=== PATIENT | male | born 1955 | race African-American/Black ===

== ENCOUNTER 2018-01-26 17:58 | Inpatient (IN) | payer MEDICAID ==
[~2018-01-26] VITALS: Ht 172.7 cm; Wt 70.8 kg
[~2018-01-26 17:58] MED LIST: DIGO0.25 PO; METO-539 PO; OMEP20CA4 PO; TRAM50TA PO; VIC PO; WARF6TAB22 PO
[2018-01-26 18:54] LABS: BASOPHILS % 0.4 % (0.0-2.0); EOSINOPHILS % 0.6 % (0.0-5.0); HEMATOCRIT. 37.4 % (42.0-52.0); HEMOGLOBIN. 12.6 g/dL (14.0-18.0); LYMPHOCYTES % 10.9 % (20.0-50.0); MEAN CORPUSCULAR HEMOGLOBIN 29.2 pg (28.0-32.0); MEAN CORPUSCULAR VOLUME 86.9 fL (80.0-94.0); MONOCYTES % 6.7 % (2.0-8.0); NEUTROPHILS % 81.4 % (40.0-76.0); RED BLOOD CELL COUNT 4.31 mill/uL (4.7-6.1); RED CELL DISTRIBUTION WIDTH 16.1 % (11.6-14.6)
[2018-01-26 19:01] LABS: CHLORIDE 108 mEq/L (98-107)
[2018-01-26 19:03] LABS: INR 1.2; PARTIAL THROMBOPLASTIN TIME 28.4 sec (23.4-31.0); PROTHROMBIN TIME 12.9 sec (9.4-11.6)
[2018-01-26 19:13] LABS: MEAN PLATELET VOLUME 10.1 fl (7.4-10.4); PLATELET 83 x1000/uL (130-400)
[2018-01-26 19:14] LABS: PLATELET ESTIMATE DECREASED
[2018-01-26] MEDS ORDERED: ASPIRIN 81MG TABLET PO NR (22:00)
[2018-01-26] MEDS ORDERED: FUROSEMIDE 20MG/2ML VIAL IVP NR (22:00)
[2018-01-26] MEDS ORDERED: IPRATROPIUM/ALBUTEROL 0.5-3(2.5)MG/3ML NEB INH PRN (22:15)
[2018-01-26] MEDS ORDERED: HYDROCODONE/ACETAMINOPHEN 5/325MG TABLET PO PRN (22:15)
[2018-01-26] MEDS ORDERED: ACETAMINOPHEN 325MG TABLET PO PRN (22:15)
[2018-01-26] MEDS ORDERED: ONDANSETRON HCL 4MG/2ML VIAL IV PRN (22:15)
[2018-01-26] MEDS ORDERED: CLONIDINE 0.1MG TABLET PO PRN (22:15)
[2018-01-26] MEDS ORDERED: MAGNESIUM/ALUMINUM HYDROXIDE/SIMETHICONE 30ML UDC PO PRN (22:15)
[2018-01-27] VITALS (7 sets, daily range): BP systolic 105–132; BP diastolic 56–75
[2018-01-27 00:18] LABS: CHLORIDE 108 mEq/L (98-107)
[2018-01-27] MEDS ORDERED: DEXTROSE 50% WATER 50ML SYRINGE IV PRN (00:45)
[2018-01-27 07:28] LABS: BASOPHILS % 0.6 % (0.0-2.0); EOSINOPHILS % 4.5 % (0.0-5.0); HEMATOCRIT. 38.2 % (42.0-52.0); HEMOGLOBIN. 12.7 g/dL (14.0-18.0); MEAN CORPUSCULAR VOLUME 87.4 fL (80.0-94.0); MONOCYTES % 10.3 % (2.0-8.0); NEUTROPHILS % 66.6 % (40.0-76.0); RED BLOOD CELL COUNT 4.38 mill/uL (4.7-6.1); RED CELL DISTRIBUTION WIDTH 16.2 % (11.6-14.6)
[2018-01-27 08:10] LABS: CREATINE KINASE 92 IU/L (39-308); HDL CHOLESTEROL 43 mg/dL (40-59); LDL CHOLESTEROL 103 mg/dL (5-100)
[2018-01-27] MEDS: INSULIN LISPRO 100 UNITS/ML SUBCUT SCH ×4 (08:10→20:41)
[2018-01-27] MEDS: BLOOD SUGAR DIAGNOSTIC STRIP TEST SCH ×4 (08:10→20:40)
[2018-01-27 08:15] LABS: CREATINE KINASE MB FRACTION < 0.5 ng/mL (0.5-3.6)
[2018-01-27 10:16] LABS: CLARITY URINE CLEAR (CLEAR); COLOR URINE YELLOW (YELLOW); KETONES URINE NEGATIVE (NEGATIVE); LEUKOCYTE ESTERASE URINE NEGATIVE (NEGATIVE); NITRITE URINE NEGATIVE (NEGATIVE); OCCULT BLOOD URINE NEGATIVE (NEGATIVE); PH URINE 5.5 (4.5-8.0); PROTEIN URINE NEGATIVE (NEGATIVE); SPECIFIC GRAVITY URINE 1.007 (1.005-1.030)
[2018-01-27 10:32] LABS: *AMPHETAMINES SCREEN URINE NEGATIVE (NEGATIVE); *BARBITURATES SCREEN URINE NEGATIVE (NEGATIVE); *BENZODIAZEPINES SCREEN URINE NEGATIVE (NEGATIVE); *COCAINE SCREEN URINE NEGATIVE (NEGATIVE); CANNABINOID URINE SCREEN NEGATIVE (NEGATIVE); METHADONE URINE SCREEN NEGATIVE (NEGATIVE); OPIATES URINE SCREEN NEGATIVE (NEGATIVE); PHENCYCLIDINE URINE SCREEN NEGATIVE (NEGATIVE)
[2018-01-27 11:15] LABS: PLATELET 79 x1000/uL (130-400)
[2018-01-27] MEDS ORDERED: REGADENOSON 0.4 MG/5 ML IV SCH (14:15)
[2018-01-27] MEDS: POTASSIUM CHLORIDE 20MEQ TABLET SR PO SCH ×2 (14:51→17:42)
[2018-01-27] MEDS: FUROSEMIDE 40MG/4ML VIAL IVP SCH (16:41)
[2018-01-27 16:43] LABS: CREATINE KINASE 89 IU/L (39-308)
[2018-01-27 16:45] LABS: CREATINE KINASE MB FRACTION < 0.5 ng/mL (0.5-3.6)
[2018-01-27] MEDS: LOSARTAN POTASSIUM 25 MG TABLET PO SCH (17:42)
[2018-01-27] MEDS ORDERED: WARFARIN SODIUM 7.5MG TABLET PO SCH (18:00)
[2018-01-27] MEDS: ENOXAPARIN 80MG/0.8ML SYR SUBCUT SCH (18:16)
[2018-01-27] MEDS: METHYLPREDNISOLONE SOD SUCC 1,000 MG in DEXT 5% WATER 100 ML IV SCH (20:27)
[2018-01-27] MEDS: GUAIFENESIN-DM 200MG-20MG/10ML UDC PO PRN (20:30)
[2018-01-27] MEDS: ATORVASTATIN CALCIUM 40MG TABLET PO SCH (20:40)
[2018-01-28 00:19] VITALS: BP 112/71
[2018-01-28 04:00] VITALS: BP 90/56
[2018-01-28 05:55] LABS: CHLORIDE 105 mEq/L (98-107)
[2018-01-28] MEDS: BLOOD SUGAR DIAGNOSTIC STRIP TEST SCH ×4 (06:06→21:00)
[2018-01-28] MEDS: ENOXAPARIN 80MG/0.8ML SYR SUBCUT SCH ×2 (06:06→19:05)
[2018-01-28 06:07] LABS: CREATINE KINASE 97 IU/L (39-308); LDL CHOLESTEROL 123 mg/dL (5-100)
[2018-01-28 06:08] LABS: HDL CHOLESTEROL 47 mg/dL (40-59)
[2018-01-28 06:10] LABS: D-DIMER 0.3 mg/L FEU (<0.50); INR 1.2
[2018-01-28 06:14] LABS: CREATINE KINASE MB FRACTION < 0.5 ng/mL (0.5-3.6)
[2018-01-28 06:18] LABS: HEMATOCRIT. 40.7 % (42.0-52.0); HEMOGLOBIN. 13.5 g/dL (14.0-18.0); MEAN CORPUSCULAR HEMOGLOBIN 29.3 pg (28.0-32.0); MEAN CORPUSCULAR VOLUME 88.2 fL (80.0-94.0); RED BLOOD CELL COUNT 4.62 mill/uL (4.7-6.1); RED CELL DISTRIBUTION WIDTH 15.6 % (11.6-14.6)
[2018-01-28] MEDS: INSULIN LISPRO 100 UNITS/ML SUBCUT SCH ×4 (07:46→21:00)
[2018-01-28 08:28] VITALS: BP 109/80
[2018-01-28] MEDS: LOSARTAN POTASSIUM 25 MG TABLET PO SCH ×2 (09:00→17:00)
[2018-01-28 09:36] LABS: PLATELET ESTIMATE DECREASED
[2018-01-28 09:37] LABS: MEAN PLATELET VOLUME 11.2 fl (7.4-10.4); PLATELET 112 x1000/uL (130-400)
[2018-01-28] MEDS: FUROSEMIDE 40MG/4ML VIAL IVP SCH ×2 (09:40→19:05)
[2018-01-28] MEDS: POTASSIUM CHLORIDE 20MEQ TABLET SR PO SCH ×2 (09:40→19:05)
[2018-01-28] MEDS ORDERED: REGADENOSON 0.4 MG/5 ML IV ONE (12:31)
[2018-01-28 13:14] VITALS: BP 119/78
[2018-01-28] MEDS: DILTIAZEM HCL 60MG TABLET PO SCH ×3 (13:37→23:42)
[2018-01-28] MEDS ORDERED: WARFARIN SODIUM 7.5MG TABLET PO NR (18:00)
[2018-01-28 20:00] VITALS: BP 112/68
[2018-01-28] MEDS: ATORVASTATIN CALCIUM 40MG TABLET PO SCH (22:03)
[2018-01-28] MEDS: METHYLPREDNISOLONE SOD SUCC 1,000 MG in DEXT 5% WATER 100 ML IV SCH (22:04)
[2018-01-28] MEDS: GUAIFENESIN-DM 200MG-20MG/10ML UDC PO PRN (23:37)
[2018-01-29] VITALS: BP 100/59
[2018-01-29 04:00] VITALS: BP 98/65
[2018-01-29] MEDS: DILTIAZEM HCL 60MG TABLET PO SCH ×3 (05:26→18:00)
[2018-01-29] MEDS: ENOXAPARIN 80MG/0.8ML SYR SUBCUT SCH ×2 (05:33→21:44)
[2018-01-29] MEDS: BLOOD SUGAR DIAGNOSTIC STRIP TEST SCH ×4 (05:53→21:44)
[2018-01-29 07:35] LABS: INR 1.5; PROTHROMBIN TIME 15.2 sec (9.4-11.6)
[2018-01-29 07:46] LABS: HEMATOCRIT. 39.5 % (42.0-52.0); MEAN CORPUSCULAR HEMOGLOBIN 29.4 pg (28.0-32.0); MEAN CORPUSCULAR VOLUME 88.9 fL (80.0-94.0); MEAN PLATELET VOLUME 11.4 fl (7.4-10.4); PLATELET 131 x1000/uL (130-400); RED BLOOD CELL COUNT 4.44 mill/uL (4.7-6.1); RED CELL DISTRIBUTION WIDTH 15.9 % (11.6-14.6)
[2018-01-29] MEDS: INSULIN LISPRO 100 UNITS/ML SUBCUT SCH ×3 (07:54→21:00)
[2018-01-29 08:00] VITALS: BP 110/73
[2018-01-29] MEDS: LOSARTAN POTASSIUM 25 MG TABLET PO SCH ×2 (09:00→17:00)
[2018-01-29] MEDS: FUROSEMIDE 40MG/4ML VIAL IVP SCH ×2 (09:10→21:48)
[2018-01-29] MEDS: POTASSIUM CHLORIDE 20MEQ TABLET SR PO SCH ×2 (09:11→21:48)
[2018-01-29 12:00] VITALS: BP 109/66
[2018-01-29 14:08] LABS: PLATELET ESTIMATE NORMAL
[2018-01-29] MEDS ORDERED: WARFARIN SODIUM 3MG TABLET PO SCH (18:00)
[2018-01-29 20:00] VITALS: BP 106/74
[2018-01-29] MEDS: ATORVASTATIN CALCIUM 40MG TABLET PO SCH (21:33)
[2018-01-29] MEDS: METHYLPREDNISOLONE SOD SUCC 1,000 MG in DEXT 5% WATER 100 ML IV SCH (21:34)
[2018-01-30] VITALS: BP 116/76
[2018-01-30] MEDS: DILTIAZEM HCL 60MG TABLET PO SCH ×4 (01:08→17:27)
[2018-01-30 04:00] VITALS: BP 102/63
[2018-01-30] MEDS: GUAIFENESIN-DM 200MG-20MG/10ML UDC PO PRN ×3 (05:48→13:30)
[2018-01-30] MEDS: ENOXAPARIN 80MG/0.8ML SYR SUBCUT SCH ×2 (05:49→17:36)
[2018-01-30] MEDS: BLOOD SUGAR DIAGNOSTIC STRIP TEST SCH ×3 (05:49→17:36)
[2018-01-30 07:44] LABS: PROTHROMBIN TIME 21.1 sec (9.4-11.6)
[2018-01-30 07:50] LABS: MEAN CORPUSCULAR VOLUME 87.3 fL (80.0-94.0); MEAN PLATELET VOLUME 10.9 fl (7.4-10.4); PLATELET 137 x1000/uL (130-400); RED BLOOD CELL COUNT 4.81 mill/uL (4.7-6.1); RED CELL DISTRIBUTION WIDTH 16.2 % (11.6-14.6)
[2018-01-30 08:00] VITALS: BP 121/77
[2018-01-30 08:09] LABS: CHLORIDE 104 mEq/L (98-107)
[2018-01-30] MEDS: INSULIN LISPRO 100 UNITS/ML SUBCUT SCH ×3 (08:10→17:36)
[2018-01-30] MEDS: FUROSEMIDE 40MG/4ML VIAL IVP SCH (09:20)
[2018-01-30] MEDS: POTASSIUM CHLORIDE 20MEQ TABLET SR PO SCH (09:20)
[2018-01-30] MEDS: LOSARTAN POTASSIUM 25 MG TABLET PO SCH ×2 (09:22→16:24)
[2018-01-30 12:00] VITALS: BP 114/78
[2018-01-30 13:30] LABS: PLATELET ESTIMATE NORMAL
[2018-01-30 16:13] VITALS: BP 97/45
[2018-01-30] MEDS ORDERED: WARF3TAB28 PO (17:07)
[2018-01-30] MEDS ORDERED: LOSA25TA3 PO (17:07)
[2018-01-30] MEDS ORDERED: DILT60TA35 PO (17:07)
[2018-01-30] MEDS ORDERED: LIP40 PO (17:07)
[2018-01-30 17:13] VITALS: BP 96/54
[2018-01-30] MEDS ORDERED: PREDNISONE 20MG TABLET PO SCH (17:45)
[2018-01-30] MEDS ORDERED: WARFARIN SODIUM 3MG TABLET PO SCH (18:00)
== END 2018-01-30 18:49 | disposition home or self-care (01) | DRG 194 ==
LOC: ER 18:02 → 7WST 21:54 → ENRESERV 01-27 00:01
PROVIDERS: ADMIT Internal Medicine; ATTEND Internal Medicine
DX: I13.0 Hypertensive heart and chronic kidney disease with heart failure and stage 1 through stage 4 chronic kidney disease, or unspecified chronic kidney disease (principal); N17.9 Acute kidney failure, unspecified; D69.6 Thrombocytopenia, unspecified; I48.92 Unspecified atrial flutter; Z95.3 Presence of xenogenic heart valve; I48.2 Chronic atrial fibrillation; I50.33 Acute on chronic diastolic (congestive) heart failure; D63.8 Anemia in other chronic diseases classified elsewhere; E78.5 Hyperlipidemia, unspecified; I08.0 Rheumatic disorders of both mitral and aortic valves; N18.9 Chronic kidney disease, unspecified
CPT/HCPCS: 36415; 71045; 78452; 80048; 80053; 80061; 80305; 81003; 82550; 82553; 82962; 83690; 83735; 83880; 84443; 84484; 85025; 85379; 85610; 85730; 93005; 93017; 93306; 93970; A9500; J1650; J1815; J1940; J2785; J2930; J7030; J7050; J7060

== ENCOUNTER 2018-08-02 21:47 | Inpatient (IN) | payer MEDICAID ==
[~2018-08-02] VITALS: Ht 172.7 cm; Wt 67.6 kg
[~2018-08-02 21:47] MED LIST changes: -DIGO0.25 PO; +DILT60TA35 PO; +LIP40 PO; +LOSA25TA3 PO; -METO-539 PO; -OMEP20CA4 PO; -TRAM50TA PO; -VIC PO; +WARF3TAB28 PO
[2018-08-02] MEDS ORDERED: FUROSEMIDE 20MG/2ML VIAL IVP ONE (23:45)
[2018-08-02 23:54] LABS: BASOPHILS % 1.3 % (0.0-2.0); EOSINOPHILS % 4.9 % (0.0-5.0); HEMATOCRIT. 30.7 % (42.0-52.0); HEMOGLOBIN. 9.2 g/dL (14.0-18.0); LYMPHOCYTES % 24.9 % (20.0-50.0); MEAN PLATELET VOLUME 9.3 fl (7.4-10.4); MONOCYTES % 11.2 % (2.0-8.0); NEUTROPHILS % 57.7 % (40.0-76.0); PLATELET 135 x1000/uL (130-400); RED BLOOD CELL COUNT 4.39 mill/uL (4.7-6.1); RED CELL DISTRIBUTION WIDTH 21.4 % (11.6-14.6)
[2018-08-03 00:02] LABS: CHLORIDE 112 mEq/L (98-107)
[2018-08-03 00:04] LABS: INR 2.1; PROTHROMBIN TIME 21.2 sec (9.1-11.1)
[2018-08-03 00:10] LABS: PLATELET ESTIMATE NORMAL
[2018-08-03 04:00] VITALS: BP 119/72
[2018-08-03] MEDS ORDERED: AM500 PO (04:14)
[2018-08-03] MEDS ORDERED: DICY20TA11 MT (04:15)
[2018-08-03 04:25] VITALS: BP 119/72
[2018-08-03 07:16] LABS: *BARBITURATES SCREEN URINE NEGATIVE (NEGATIVE); *BENZODIAZEPINES SCREEN URINE NEGATIVE (NEGATIVE); METHADONE URINE SCREEN NEGATIVE (NEGATIVE); OPIATES URINE SCREEN NEGATIVE (NEGATIVE)
[2018-08-03 07:17] LABS: *AMPHETAMINES SCREEN URINE NEGATIVE (NEGATIVE); *COCAINE SCREEN URINE NEGATIVE (NEGATIVE); CANNABINOID URINE SCREEN NEGATIVE (NEGATIVE); PHENCYCLIDINE URINE SCREEN NEGATIVE (NEGATIVE)
[2018-08-03 08:00] VITALS: BP 114/71
[2018-08-03 08:41] LABS: BASOPHILS % 1.7 % (0.0-2.0); EOSINOPHILS % 3.7 % (0.0-5.0); HEMOGLOBIN. 9.5 g/dL (14.0-18.0); LYMPHOCYTES % 24.8 % (20.0-50.0); MEAN CORPUSCULAR HEMOGLOBIN 21.4 pg (28.0-32.0); MEAN CORPUSCULAR VOLUME 70.1 fL (80.0-94.0); MONOCYTES % 12.5 % (2.0-8.0); NEUTROPHILS % 57.3 % (40.0-76.0); RED BLOOD CELL COUNT 4.42 mill/uL (4.7-6.1); RED CELL DISTRIBUTION WIDTH 21.6 % (11.6-14.6)
[2018-08-03 08:47] LABS: CHLORIDE 111 mEq/L (98-107)
[2018-08-03 08:55] LABS: CREATINE KINASE 95 IU/L (39-308)
[2018-08-03 08:57] LABS: CREATINE KINASE MB FRACTION < 1.0 ng/mL (0.5-3.6)
[2018-08-03 09:14] LABS: MEAN PLATELET VOLUME 9.7 fl (7.4-10.4); PLATELET 117 x1000/uL (130-400)
[2018-08-03 12:00] VITALS: BP 114/68
[2018-08-03] MEDS: DICYCLOMINE HCL 20MG TABLET PO SCH ×2 (14:12→18:19)
[2018-08-03 16:00] VITALS: BP 105/71
[2018-08-03 17:18] LABS: TOTAL IRON BINDING CAPACITY 361 ug/dL (250-450)
[2018-08-03 17:19] LABS: HAPTOGLOBIN <31.0 mg/dL (30-200)
[2018-08-03 17:21] LABS: CREATINE KINASE 81 IU/L (39-308)
[2018-08-03 17:22] LABS: CREATINE KINASE MB FRACTION < 1.0 ng/mL (0.5-3.6)
[2018-08-03 17:33] LABS: FOLIC ACID (FOLATE) SERUM 12.3 ng/mL (>5.38)
[2018-08-03] MEDS ORDERED: WARFARIN SODIUM 3MG TABLET PO SCH (18:00)
[2018-08-03] MEDS ORDERED: WARFARIN SODIUM 7.5MG TABLET PO SCH (18:00)
[2018-08-03 20:00] VITALS: BP 99/60
[2018-08-04] VITALS: BP 110/77
[2018-08-04 03:49] LABS: CLARITY URINE CLEAR (CLEAR); COLOR URINE YELLOW (YELLOW); KETONES URINE NEGATIVE (NEGATIVE); LEUKOCYTE ESTERASE URINE NEGATIVE (NEGATIVE); NITRITE URINE NEGATIVE (NEGATIVE); OCCULT BLOOD URINE NEGATIVE (NEGATIVE); PH URINE 5.5 (4.5-8.0); PROTEIN URINE NEGATIVE (NEGATIVE); UROBILINOGEN URINE 0.2 E.U./dL (0.2-1.0)
[2018-08-04 04:00] VITALS: BP 97/68
[2018-08-04 06:34] LABS: BASOPHILS % 1.2 % (0.0-2.0); EOSINOPHILS % 7.1 % (0.0-5.0); HEMATOCRIT. 30.7 % (42.0-52.0); HEMOGLOBIN. 9.4 g/dL (14.0-18.0); LYMPHOCYTES % 28.3 % (20.0-50.0); MEAN CORPUSCULAR HEMOGLOBIN 21.3 pg (28.0-32.0); MEAN CORPUSCULAR VOLUME 69.3 fL (80.0-94.0); MEAN PLATELET VOLUME 9.9 fl (7.4-10.4); MONOCYTES % 13.6 % (2.0-8.0); NEUTROPHILS % 49.8 % (40.0-76.0); PLATELET 139 x1000/uL (130-400); RED BLOOD CELL COUNT 4.44 mill/uL (4.7-6.1); RED CELL DISTRIBUTION WIDTH 20.8 % (11.6-14.6)
[2018-08-04 06:38] LABS: PROTHROMBIN TIME 19.4 sec (9.1-11.1)
[2018-08-04 07:31] LABS: CHLORIDE 110 mEq/L (98-107)
[2018-08-04 08:00] VITALS: BP 96/64
[2018-08-04] MEDS: DICYCLOMINE HCL 20MG TABLET PO SCH ×3 (08:26→17:12)
[2018-08-04] MEDS ORDERED: ONDANSETRON HCL 4MG/2ML INJ IV PRN (08:30)
[2018-08-04] MEDS ORDERED: ACETAMINOPHEN 325MG TABLET PO PRN (08:30)
[2018-08-04] MEDS: FUROSEMIDE 40MG/4ML VIAL IVP SCH ×2 (08:49→17:11)
[2018-08-04] MEDS: DOCUSATE SODIUM 100MG CAPSULE PO SCH ×2 (08:49→17:11)
[2018-08-04 10:42] LABS: PLATELET ESTIMATE NORMAL
[2018-08-04] MEDS ORDERED: POTASSIUM CHLORIDE 20MEQ TABLET SR PO SCH (11:45)
[2018-08-04] MEDS: FERROUS SULFATE 325MG TABLET PO SCH ×2 (11:53→17:11)
[2018-08-04 12:04] VITALS: BP 99/75
[2018-08-04 16:00] VITALS: BP 100/75
[2018-08-04 16:51] VITALS: BP 100/75
[2018-08-04] MEDS ORDERED: WARFARIN SODIUM 10MG TABLET PO SCH (18:00)
[2018-08-04] MEDS ORDERED: DIGOXIN 250MCG TABLET PO SCH (18:00)
== END 2018-08-04 17:32 | disposition home or self-care (01) | DRG 194 ==
LOC: ER 21:47 → 5WST 08-03 01:50 → ENRESERV 08-03 02:56
PROVIDERS: ADMIT Internal Medicine; ATTEND Internal Medicine
DX: I13.0 Hypertensive heart and chronic kidney disease with heart failure and stage 1 through stage 4 chronic kidney disease, or unspecified chronic kidney disease (principal); D69.6 Thrombocytopenia, unspecified; I42.9 Cardiomyopathy, unspecified; I50.23 Acute on chronic systolic (congestive) heart failure; D50.9 Iron deficiency anemia, unspecified; E78.5 Hyperlipidemia, unspecified; I09.9 Rheumatic heart disease, unspecified; I48.2 Chronic atrial fibrillation; K58.9 Irritable bowel syndrome, unspecified; N18.9 Chronic kidney disease, unspecified; Z79.01 Long term (current) use of anticoagulants; Z95.2 Presence of prosthetic heart valve; Z79.899 Other long term (current) drug therapy
CPT/HCPCS: 36415; 71045; 80048; 80305; 82270; 82550; 82553; 82607; 82728; 82746; 83010; 83540; 83550; 83615; 83880; 84484; 85044; 93005; 93306; 96374; 99285; J1940

== ENCOUNTER 2018-09-08 03:18 | Inpatient (IN) | payer MEDICAID ==
[~2018-09-08] VITALS: Ht 172.7 cm; Wt 68.0 kg
[~2018-09-08 03:18] MED LIST changes: +DICY20TA11 MT; -DILT60TA35 PO; -LIP40 PO; -LOSA25TA3 PO; -WARF3TAB28 PO
[2018-09-08] MEDS ORDERED: SODIUM CHLORIDE 0.9% 500 ML IV ONE (03:30)
[2018-09-08 04:09] LABS: BASOPHILS % 1.4 % (0.0-2.0); HEMATOCRIT. 34.4 % (42.0-52.0); HEMOGLOBIN. 10.5 g/dL (14.0-18.0); LYMPHOCYTES % 24.2 % (20.0-50.0); MEAN CORPUSCULAR HEMOGLOBIN 23.4 pg (28.0-32.0); MEAN CORPUSCULAR VOLUME 76.6 fL (80.0-94.0); MONOCYTES % 8.9 % (2.0-8.0); NEUTROPHILS % 62.5 % (40.0-76.0); RED BLOOD CELL COUNT 4.49 mill/uL (4.7-6.1)
[2018-09-08 04:20] LABS: CHLORIDE 112 mEq/L (98-107)
[2018-09-08 04:28] LABS: LDL CHOLESTEROL 85 mg/dL (5-100)
[2018-09-08 04:29] LABS: CREATINE KINASE 100 IU/L (39-308); CREATINE KINASE MB FRACTION 1.1 ng/mL (0.5-3.6); HDL CHOLESTEROL 40 mg/dL (40-59)
[2018-09-08 05:18] LABS: MEAN PLATELET VOLUME 9.9 fl (7.4-10.4); PLATELET 112 x1000/uL (130-400)
[2018-09-08] MEDS ORDERED: FUROSEMIDE 40MG/4ML VIAL IVP ONE (05:45)
[2018-09-08] MEDS ORDERED: IOHEXOL-350 100 ML BOTTLE ONE (05:51)
[2018-09-08 16:49] LABS: INR 2.4; PROTHROMBIN TIME 23.3 sec (9.1-11.1)
[2018-09-08] MEDS ORDERED: DILTIAZEM HCL 30MG TABLET PO SCH (18:00)
[2018-09-08 21:50] VITALS: BP 118/68
[2018-09-08] MEDS ORDERED: WARFARIN SODIUM 3MG TABLET PO NR (22:45)
[2018-09-08] MEDS: DILTIAZEM HCL 30MG TABLET PO SCH (23:14)
[2018-09-08 23:17] VITALS: BP 118/68
[2018-09-09 00:08] VITALS: BP 101/75
[2018-09-09 04:00] VITALS: BP 95/50
[2018-09-09] MEDS: DILTIAZEM HCL 30MG TABLET PO SCH ×4 (04:00→21:16)
[2018-09-09 06:25] LABS: D-DIMER 0.34 mg/L FEU (<0.50); INR 2.9; PROTHROMBIN TIME 28.8 sec (9.1-11.1)
[2018-09-09 06:26] LABS: BASOPHILS % 1.1 % (0.0-2.0); EOSINOPHILS % 4.3 % (0.0-5.0); HEMATOCRIT. 33.2 % (42.0-52.0); HEMOGLOBIN. 10.4 g/dL (14.0-18.0); LYMPHOCYTES % 20.4 % (20.0-50.0); MEAN CORPUSCULAR HEMOGLOBIN 23.6 pg (28.0-32.0); MEAN CORPUSCULAR VOLUME 75.7 fL (80.0-94.0); MEAN PLATELET VOLUME 10.3 fl (7.4-10.4); MONOCYTES % 11.8 % (2.0-8.0); NEUTROPHILS % 62.4 % (40.0-76.0); PLATELET 110 x1000/uL (130-400); RED BLOOD CELL COUNT 4.39 mill/uL (4.7-6.1); RED CELL DISTRIBUTION WIDTH 24.6 % (11.6-14.6)
[2018-09-09 06:30] LABS: CHLORIDE 107 mEq/L (98-107)
[2018-09-09 06:41] LABS: CREATINE KINASE 76 IU/L (39-308)
[2018-09-09 06:45] LABS: CREATINE KINASE MB FRACTION < 1.0 ng/mL (0.5-3.6)
[2018-09-09 08:00] VITALS: BP 117/77
[2018-09-09] MEDS ORDERED: CLONIDINE 0.1MG TABLET PO PRN (08:15)
[2018-09-09] MEDS ORDERED: DOCUSATE SODIUM 100MG CAPSULE PO PRN (08:15)
[2018-09-09] MEDS ORDERED: IPRATROPIUM/ALBUTEROL 0.5-3(2.5)MG/3ML NEB INH PRN (08:15)
[2018-09-09] MEDS ORDERED: HYDROCODONE/ACETAMINOPHEN 5/325MG TABLET PO PRN (08:15)
[2018-09-09] MEDS ORDERED: ACETAMINOPHEN 325MG TABLET PO PRN (08:15)
[2018-09-09] MEDS ORDERED: LORAZEPAM 0.5MG TABLET PO PRN (08:15)
[2018-09-09] MEDS ORDERED: ONDANSETRON HCL 4MG/2ML INJ IV PRN (08:15)
[2018-09-09] MEDS ORDERED: POTASSIUM CHLORIDE 20MEQ TABLET SR PO NR (09:30)
[2018-09-09] MEDS: DICYCLOMINE HCL 20MG TABLET PO SCH ×3 (09:54→17:36)
[2018-09-09 12:00] VITALS: BP 116/76
[2018-09-09] MEDS: POTASSIUM CHLORIDE 20MEQ TABLET SR PO SCH ×2 (12:15→17:36)
[2018-09-09] MEDS: FUROSEMIDE 40MG/4ML VIAL IVP SCH ×2 (12:47→17:37)
[2018-09-09 14:11] LABS: CLARITY URINE CLEAR (CLEAR); COLOR URINE YELLOW (YELLOW); KETONES URINE NEGATIVE (NEGATIVE); LEUKOCYTE ESTERASE URINE NEGATIVE (NEGATIVE); NITRITE URINE NEGATIVE (NEGATIVE); OCCULT BLOOD URINE NEGATIVE (NEGATIVE); PROTEIN URINE 1+ (NEGATIVE); SPECIFIC GRAVITY URINE 1.013 (1.005-1.030)
[2018-09-09 14:22] LABS: METHADONE URINE SCREEN NEGATIVE (NEGATIVE); OPIATES URINE SCREEN NEGATIVE (NEGATIVE)
[2018-09-09 14:23] LABS: *AMPHETAMINES SCREEN URINE NEGATIVE (NEGATIVE); *BARBITURATES SCREEN URINE NEGATIVE (NEGATIVE); *BENZODIAZEPINES SCREEN URINE NEGATIVE (NEGATIVE); *COCAINE SCREEN URINE NEGATIVE (NEGATIVE); CANNABINOID URINE SCREEN NEGATIVE (NEGATIVE); PHENCYCLIDINE URINE SCREEN NEGATIVE (NEGATIVE)
[2018-09-09 16:00] VITALS: BP 105/70
[2018-09-09] MEDS ORDERED: WARFARIN SODIUM 2MG TABLET PO SCH ×2 (18:00)
[2018-09-09 19:49] LABS: PLATELET ESTIMATE DECREASED
[2018-09-09 20:00] VITALS: BP 118/77
[2018-09-10] VITALS: BP 115/69
[2018-09-10] MEDS: DILTIAZEM HCL 30MG TABLET PO SCH ×2 (04:00→10:24)
[2018-09-10 04:01] VITALS: BP 94/58
[2018-09-10] MEDS: FUROSEMIDE 40MG/4ML VIAL IVP SCH (06:45)
[2018-09-10 08:00] VITALS: BP 113/67
[2018-09-10] MEDS: POTASSIUM CHLORIDE 20MEQ TABLET SR PO SCH (08:02)
[2018-09-10] MEDS: DICYCLOMINE HCL 20MG TABLET PO SCH ×2 (08:02→12:25)
[2018-09-10 08:11] LABS: INR 3.5; PROTHROMBIN TIME 34.1 sec (9.1-11.1)
[2018-09-10 09:47] LABS: CHLORIDE 106 mEq/L (98-107)
[2018-09-10] MEDS ORDERED: POTASSIUM CHLORIDE 20MEQ TABLET SR PO SCH (10:15)
[2018-09-10 12:00] VITALS: BP 108/73
[2018-09-10] MEDS ORDERED: DILT30TA38 PO (12:44)
[2018-09-10] MEDS ORDERED: WARF1TAB85 MT (12:46)
[2018-09-10 13:12] VITALS: BP 108/73
== END 2018-09-10 15:10 | disposition home or self-care (01) | DRG 241 ==
LOC: ER 03:18 → 6WST 06:11 → EDBEDREQ 06:14 → EDBEDREQTM 06:14 → ENRESERV 20:39
PROVIDERS: ADMIT Internal Medicine; ATTEND Internal Medicine
DX: K29.70 Gastritis, unspecified, without bleeding (principal); I50.21 Acute systolic (congestive) heart failure; I27.29 Other secondary pulmonary hypertension; E44.1 Mild protein-calorie malnutrition; E87.8 Other disorders of electrolyte and fluid balance, not elsewhere classified; I42.9 Cardiomyopathy, unspecified; I48.91 Unspecified atrial fibrillation; I11.0 Hypertensive heart disease with heart failure; R07.89 Other chest pain; R79.1 Abnormal coagulation profile; I08.0 Rheumatic disorders of both mitral and aortic valves; R59.0 Localized enlarged lymph nodes; Z95.2 Presence of prosthetic heart valve; Z79.01 Long term (current) use of anticoagulants; Z79.899 Other long term (current) drug therapy; M94.0 Chondrocostal junction syndrome [Tietze]
CPT/HCPCS: 36415; 71045; 71275; 80061; 80305; 82550; 82553; 83735; 83880; 84443; 84484; 85379; 93005; 96361; 96374; 99285; J1940; J7040; Q9967

== ENCOUNTER 2019-09-28 04:43 | Inpatient (IN) | payer MEDICAID ==
[~2019-09-28] VITALS: Ht 172.7 cm; Wt 68.9 kg
[~2019-09-28 04:43] MED LIST changes: +WARF6TAB22 MT; -WARF6TAB22 PO
[2019-09-28 08:23] LABS: BASOPHILS % 0.9 % (0.0-2.0); HEMATOCRIT. 34.2 % (42.0-52.0); HEMOGLOBIN. 11.6 g/dL (14.0-18.0); MEAN CORPUSCULAR HEMOGLOBIN 30.2 pg (28.0-32.0); MEAN CORPUSCULAR VOLUME 89.5 fL (80.0-94.0); MEAN PLATELET VOLUME 10.8 fl (7.4-10.4); MONOCYTES % 10.7 % (2.0-8.0); NEUTROPHILS % 65.4 % (40.0-76.0); PLATELET 105 x1000/uL (130-400); RED BLOOD CELL COUNT 3.82 mill/uL (4.7-6.1)
[2019-09-28 08:32] LABS: CHLORIDE 113 mEq/L (98-107)
[2019-09-28 08:43] LABS: INR 2.3; PROTHROMBIN TIME 24.2 sec (9.6-11.0)
[2019-09-28] MEDS ORDERED: ACETAMINOPHEN 325MG TABLET PO PRN (15:30)
[2019-09-28] MEDS ORDERED: DOCUSATE SODIUM 100MG CAPSULE PO PRN (15:30)
[2019-09-28] MEDS ORDERED: IPRATROPIUM/ALBUTEROL 0.5-3(2.5)MG/3ML NEB HHN PRN (15:30)
[2019-09-28] MEDS ORDERED: LORAZEPAM 0.5MG TABLET PO PRN (15:30)
[2019-09-28] MEDS ORDERED: CLONIDINE 0.1MG TABLET PO PRN (15:30)
[2019-09-28] MEDS ORDERED: ONDANSETRON HCL 4MG/2ML INJ IV PRN (15:30)
[2019-09-28] MEDS ORDERED: HYDROCODONE/ACETAMINOPHEN 5/325MG TABLET PO PRN (15:30)
[2019-09-28] MEDS ORDERED: GUAIFENESIN 200MG/10ML SUGAR FREE UDC PO PRN (15:30)
[2019-09-28] MEDS ORDERED: FUROSEMIDE 40MG/4ML VIAL IVP NR (16:45)
[2019-09-28] MEDS ORDERED: WARFARIN SODIUM 3MG TABLET PO NR (17:00)
[2019-09-28 19:42] LABS: *AMPHETAMINES SCREEN URINE NEGATIVE (NEGATIVE); *BENZODIAZEPINES SCREEN URINE NEGATIVE (NEGATIVE); *COCAINE SCREEN URINE NEGATIVE (NEGATIVE); CANNABINOID URINE SCREEN NEGATIVE (NEGATIVE); METHADONE URINE SCREEN NEGATIVE (NEGATIVE); OPIATES URINE SCREEN NEGATIVE (NEGATIVE); PHENCYCLIDINE URINE SCREEN NEGATIVE (NEGATIVE)
[2019-09-28 19:43] LABS: *BARBITURATES SCREEN URINE NEGATIVE (NEGATIVE)
[2019-09-28 21:30] VITALS: BP 130/79
[2019-09-29] VITALS: BP 116/85
[2019-09-29 04:00] VITALS: BP 118/79
[2019-09-29] MEDS: FUROSEMIDE 40MG/4ML VIAL IVP SCH ×2 (06:51→17:13)
[2019-09-29 07:47] LABS: INR 2.9; PROTHROMBIN TIME 30.5 sec (9.6-11.0)
[2019-09-29 07:50] LABS: EOSINOPHILS % 5.1 % (0.0-5.0); HEMATOCRIT. 34.5 % (42.0-52.0); HEMOGLOBIN. 11.6 g/dL (14.0-18.0); LYMPHOCYTES % 14.3 % (20.0-50.0); MEAN CORPUSCULAR HEMOGLOBIN 30.4 pg (28.0-32.0); MEAN CORPUSCULAR VOLUME 90.8 fL (80.0-94.0); MEAN PLATELET VOLUME 11.1 fl (7.4-10.4); MONOCYTES % 11.7 % (2.0-8.0); NEUTROPHILS % 67.9 % (40.0-76.0); PLATELET 108 x1000/uL (130-400); RED CELL DISTRIBUTION WIDTH 17.1 % (11.6-14.6)
[2019-09-29 08:00] VITALS: BP 120/72
[2019-09-29 08:02] LABS: CHLORIDE 111 mEq/L (98-107)
[2019-09-29 08:14] LABS: PHOSPHORUS 2.9 mg/dL (2.5-4.9)
[2019-09-29 08:16] LABS: TOTAL IRON BINDING CAPACITY 275 ug/dL (250-450)
[2019-09-29 12:00] VITALS: BP 111/75
[2019-09-29] MEDS: IRON SUCROSE COMPLEX 100 MG/5 ML ML IV SCH (12:33)
[2019-09-29] MEDS: CEFTRIAXONE 2 G in DEXTROSE 5% WATER 50 ML IV SCH (12:33)
[2019-09-29 16:00] VITALS: BP 111/63
[2019-09-29] MEDS ORDERED: WARFARIN SODIUM 2MG TABLET PO NR (18:00)
[2019-09-29] MEDS ORDERED: WARFARIN SODIUM 2.5MG TABLET PO NR (18:00)
[2019-09-29 20:00] VITALS: BP 108/67
[2019-09-29] MEDS: CARVEDILOL 3.125 MG TABLET PO SCH (21:00)
[2019-09-30] VITALS: BP 106/71
[2019-09-30 04:00] VITALS: BP 118/79
[2019-09-30] MEDS: FUROSEMIDE 40MG/4ML VIAL IVP SCH ×2 (06:30→17:15)
[2019-09-30 07:59] LABS: BASOPHILS % 0.6 % (0.0-2.0); EOSINOPHILS % 5.9 % (0.0-5.0); HEMATOCRIT. 36.6 % (42.0-52.0); HEMOGLOBIN. 12.2 g/dL (14.0-18.0); LYMPHOCYTES % 16.4 % (20.0-50.0); MEAN CORPUSCULAR HEMOGLOBIN 30.1 pg (28.0-32.0); MEAN CORPUSCULAR VOLUME 90.4 fL (80.0-94.0); MONOCYTES % 12.5 % (2.0-8.0); NEUTROPHILS % 64.6 % (40.0-76.0); RED BLOOD CELL COUNT 4.05 mill/uL (4.7-6.1); RED CELL DISTRIBUTION WIDTH 16.4 % (11.6-14.6)
[2019-09-30 08:00] VITALS: BP 118/81
[2019-09-30 08:09] LABS: INR 2.9; PROTHROMBIN TIME 31.1 sec (9.6-11.0)
[2019-09-30 08:18] LABS: CHLORIDE 105 mEq/L (98-107)
[2019-09-30] MEDS ORDERED: POTASSIUM CHLORIDE 20MEQ TABLET SR PO SCH (08:45)
[2019-09-30] MEDS: IRON SUCROSE COMPLEX 100 MG/5 ML ML IV SCH (09:20)
[2019-09-30] MEDS: CARVEDILOL 3.125 MG TABLET PO SCH ×2 (09:21→20:22)
[2019-09-30 12:00] VITALS: BP 93/50
[2019-09-30] MEDS: DILTIAZEM HCL 30MG TABLET PO SCH ×2 (12:00→18:00)
[2019-09-30] MEDS: CEFTRIAXONE 2 G in DEXTROSE 5% WATER 50 ML IV SCH (13:34)
[2019-09-30] MEDS: POTASSIUM CHLORIDE 20MEQ TABLET SR PO SCH (13:36)
[2019-09-30 13:49] LABS: PLATELET ESTIMATE DECREASED
[2019-09-30 15:44] VITALS: BP 96/65
[2019-09-30] MEDS ORDERED: WARFARIN SODIUM 5MG TABLET PO SCH (18:00)
[2019-09-30 20:00] VITALS: BP 96/59
[2019-10-01 04:00] VITALS: BP 106/60
[2019-10-01] MEDS: DILTIAZEM HCL 30MG TABLET PO SCH ×3 (05:16→12:00)
[2019-10-01] MEDS: FUROSEMIDE 40MG/4ML VIAL IVP SCH (06:34)
[2019-10-01] MEDS ORDERED: POTASSIUM CHLORIDE 20MEQ TABLET SR PO NR (07:00)
[2019-10-01 08:00] VITALS: BP 109/74
[2019-10-01] MEDS: CARVEDILOL 3.125 MG TABLET PO SCH (08:59)
[2019-10-01] MEDS: POTASSIUM CHLORIDE 20MEQ TABLET SR PO SCH (09:00)
[2019-10-01 11:39] LABS: BASOPHILS % 1.2 % (0.0-2.0); EOSINOPHILS % 8.6 % (0.0-5.0); HEMOGLOBIN. 12.8 g/dL (14.0-18.0); LYMPHOCYTES % 20.6 % (20.0-50.0); MEAN CORPUSCULAR HEMOGLOBIN 30.2 pg (28.0-32.0); MEAN CORPUSCULAR VOLUME 89.4 fL (80.0-94.0); MEAN PLATELET VOLUME 10.6 fl (7.4-10.4); MONOCYTES % 13.9 % (2.0-8.0); NEUTROPHILS % 55.7 % (40.0-76.0); PLATELET 131 x1000/uL (130-400); RED BLOOD CELL COUNT 4.25 mill/uL (4.7-6.1); RED CELL DISTRIBUTION WIDTH 17.2 % (11.6-14.6)
[2019-10-01 11:50] LABS: INR 2.8; PROTHROMBIN TIME 29.7 sec (9.6-11.0)
[2019-10-01 11:54] LABS: CHLORIDE 104 mEq/L (98-107)
[2019-10-01 12:00] VITALS: BP 97/57
[2019-10-01] MEDS: CEFTRIAXONE 2 G in DEXTROSE 5% WATER 50 ML IV SCH (12:54)
[2019-10-01] MEDS ORDERED: CEPH-569 MT (13:04)
[2019-10-01 15:11] VITALS: BP 101/68
[2019-10-01] MEDS ORDERED: COR3 PO (15:37)
[2019-10-01] MEDS ORDERED: DILT30TA38 PO (15:37)
[2019-10-01 16:25] VITALS: BP 101/68
[2019-10-01] MEDS ORDERED: WARFARIN SODIUM 5MG TABLET PO SCH (18:00)
== END 2019-10-01 18:00 | disposition home or self-care (01) | DRG 194 ==
LOC: ER 04:43 → ENRESERV 20:35 → 5WST 21:34
PROVIDERS: ADMIT Internal Medicine; ATTEND Internal Medicine
DX: I11.0 Hypertensive heart disease with heart failure (principal); J18.9 Pneumonia, unspecified organism; D69.6 Thrombocytopenia, unspecified; E44.1 Mild protein-calorie malnutrition; Z79.01 Long term (current) use of anticoagulants; I48.92 Unspecified atrial flutter; Z95.2 Presence of prosthetic heart valve; I48.91 Unspecified atrial fibrillation; I50.23 Acute on chronic systolic (congestive) heart failure; I42.2 Other hypertrophic cardiomyopathy; D50.9 Iron deficiency anemia, unspecified; E78.5 Hyperlipidemia, unspecified; I45.10 Unspecified right bundle-branch block; E87.6 Hypokalemia; Z79.899 Other long term (current) drug therapy; J98.11 Atelectasis
CPT/HCPCS: 36415; 71045; 80048; 80053; 80305; 82728; 83540; 83550; 83735; 83880; 84100; 84484; 85025; 93005; 99285; J0696; J1940; J7060

== ENCOUNTER 2019-10-26 13:03 | Inpatient (IN) | payer MEDICAID ==
[~2019-10-26] VITALS: Ht 172.7 cm; Wt 68.2 kg
[~2019-10-26 13:03] MED LIST changes: +CEPH-569 MT; +COR3 PO; -DICY20TA11 MT; +DILT30TA38 PO
[2019-10-26] MEDS ORDERED: LEVOFLOXACIN 750MG PREMIX 150 ML IV ONE (14:15)
[2019-10-26] MEDS ORDERED: ACETAMINOPHEN 325MG TABLET PO ONE (14:15)
[2019-10-26] MEDS ORDERED: SODIUM CHLORIDE 0.9% 1000ML BAG (SEPSIS BOLUS) IV ONE (14:15)
[2019-10-26 14:54] LABS: BASOPHILS % 0.6 % (0.0-2.0); EOSINOPHILS % 0.4 % (0.0-5.0); HEMATOCRIT. 36.3 % (42.0-52.0); HEMOGLOBIN. 12.1 g/dL (14.0-18.0); LYMPHOCYTES % 8.9 % (20.0-50.0); MEAN CORPUSCULAR HEMOGLOBIN 29.8 pg (28.0-32.0); MEAN CORPUSCULAR VOLUME 89.6 fL (80.0-94.0); MEAN PLATELET VOLUME 10.9 fl (7.4-10.4); MONOCYTES % 8.2 % (2.0-8.0); NEUTROPHILS % 81.9 % (40.0-76.0); PLATELET 106 x1000/uL (130-400); RED BLOOD CELL COUNT 4.05 mill/uL (4.7-6.1)
[2019-10-26 15:01] LABS: CHLORIDE 108 mEq/L (98-107)
[2019-10-26] MEDS ORDERED: POTASSIUM CHLORIDE 20MEQ TABLET SR PO ONE (15:30)
[2019-10-26 15:32] LABS: INR 2.6; PARTIAL THROMBOPLASTIN TIME 47.2 sec (23.4-31.0); PROTHROMBIN TIME 27.1 sec (9.6-11.0)
[2019-10-26] MEDS ORDERED: FUROSEMIDE 40MG/4ML VIAL IVP ONE (16:30)
[2019-10-26] MEDS ORDERED: ASPIRIN 325MG EC TABLET PO ONE (16:30)
[2019-10-26 18:45] LABS: CLARITY URINE CLEAR (CLEAR); COLOR URINE YELLOW (YELLOW); KETONES URINE NEGATIVE (NEGATIVE); LEUKOCYTE ESTERASE URINE NEGATIVE (NEGATIVE); NITRITE URINE NEGATIVE (NEGATIVE); OCCULT BLOOD URINE NEGATIVE (NEGATIVE); PH URINE 5.5 (4.5-8.0); PROTEIN URINE TRACE (NEGATIVE); SPECIFIC GRAVITY URINE 1.007 (1.005-1.030); UROBILINOGEN URINE 0.2 E.U./dL (0.2-1.0)
[2019-10-26] MEDS ORDERED: ONDANSETRON HCL 4MG/2ML INJ IV PRN (18:45)
[2019-10-26] MEDS ORDERED: ACETAMINOPHEN 325MG TABLET PO PRN (18:45)
[2019-10-27 10:04] LABS: BASOPHILS % 0.5 % (0.0-2.0); HEMATOCRIT. 41.1 % (42.0-52.0); HEMOGLOBIN. 13.8 g/dL (14.0-18.0); LYMPHOCYTES % 14.8 % (20.0-50.0); MEAN CORPUSCULAR HEMOGLOBIN 29.9 pg (28.0-32.0); MEAN CORPUSCULAR VOLUME 89.4 fL (80.0-94.0); MEAN PLATELET VOLUME 10.5 fl (7.4-10.4); MONOCYTES % 8.2 % (2.0-8.0); NEUTROPHILS % 76.5 % (40.0-76.0); PLATELET 117 x1000/uL (130-400); RED CELL DISTRIBUTION WIDTH 16.1 % (11.6-14.6)
[2019-10-27 10:11] LABS: CHLORIDE 104 mEq/L (98-107)
[2019-10-27] MEDS ORDERED: FUROSEMIDE 40MG/4ML VIAL IVP SCH (11:45)
[2019-10-27] MEDS ORDERED: DILTIAZEM HCL 120MG CAPSULE CD 24HR PO NR (12:00)
[2019-10-27] MEDS: POTASSIUM CHLORIDE 20MEQ TABLET SR PO SCH (13:45)
[2019-10-27] MEDS ORDERED: IPRATROPIUM BROMIDE (0.02%) 0.5MG/2.5ML NEB HHN SCH (14:00)
[2019-10-27] MEDS ORDERED: METHYLPREDNISOLONE SOD SUCC 40 MG/ML VIAL IV NR (14:00)
[2019-10-27 18:12] VITALS: BP 122/79
[2019-10-27] MEDS ORDERED: WARFARIN SODIUM 3MG TABLET PO SCH (19:00)
[2019-10-27] MEDS ORDERED: SODIUM CHLORIDE 0.9% 1,000 ML IV SCH (19:00)
[2019-10-27] MEDS ORDERED: CARV3.1242 PO (19:46)
[2019-10-27] MEDS ORDERED: CEPH500C2 MT (19:46)
[2019-10-27] MEDS ORDERED: DILT30TA3 PO (19:46)
[2019-10-27] MEDS ORDERED: WARF3TAB58 PO (19:46)
[2019-10-27 20:00] VITALS: BP 106/75
[2019-10-27] MEDS: VANCOMYCIN 1 G PREMIX 200 ML IV SCH (20:15)
[2019-10-27] MEDS: MIDODRINE HCL 5MG TABLET PO SCH (20:16)
[2019-10-27] MEDS: PIPERACILLIN/TAZOBACTAM 3.375 G in DEXT 5% WATER 100 ML IV SCH (23:17)
[2019-10-27 23:39] VITALS: BP 99/69
[2019-10-28 04:30] VITALS: BP 112/85
[2019-10-28] MEDS: PIPERACILLIN/TAZOBACTAM 3.375 G in DEXT 5% WATER 100 ML IV SCH ×4 (04:34→23:29)
[2019-10-28 06:20] LABS: INR 3.6; PROTHROMBIN TIME 37.5 sec (9.6-11.0)
[2019-10-28 06:25] LABS: BASOPHILS % 0.3 % (0.0-2.0); HEMATOCRIT. 40.7 % (42.0-52.0); HEMOGLOBIN. 13.4 g/dL (14.0-18.0); LYMPHOCYTES % 15.3 % (20.0-50.0); MEAN CORPUSCULAR HEMOGLOBIN 29.6 pg (28.0-32.0); MEAN PLATELET VOLUME 10.5 fl (7.4-10.4); NEUTROPHILS % 74.4 % (40.0-76.0); PLATELET 129 x1000/uL (130-400); RED BLOOD CELL COUNT 4.52 mill/uL (4.7-6.1); RED CELL DISTRIBUTION WIDTH 16.2 % (11.6-14.6)
[2019-10-28 06:31] LABS: CHLORIDE 110 mEq/L (98-107)
[2019-10-28] MEDS: POTASSIUM CHLORIDE 20MEQ TABLET SR PO SCH (08:37)
[2019-10-28] MEDS: MIDODRINE HCL 5MG TABLET PO SCH ×3 (08:38→18:11)
[2019-10-28] MEDS: DILTIAZEM HCL 120MG CAPSULE CD 24HR PO SCH (08:40)
[2019-10-28] MEDS: VANCOMYCIN 1 G PREMIX 200 ML IV SCH ×2 (08:41→20:15)
[2019-10-28 12:16] VITALS: BP 116/82
[2019-10-28] MEDS ORDERED: ALBUTEROL 6.7GM HFA INHALER ORI SCH (13:30)
[2019-10-28] MEDS ORDERED: ALBUTEROL (0.083%) 2.5MG/3ML NEB HHN PRN (15:00)
[2019-10-28] MEDS ORDERED: FUROSEMIDE 40MG/4ML VIAL IVP NR (16:15)
[2019-10-28 18:46] VITALS: BP 119/84
[2019-10-28 20:00] VITALS: BP 100/66
[2019-10-29] VITALS: BP_SYST 105; BP_SYST 109; BP_DIAS 65; BP_DIAS 69
[2019-10-29 04:00] VITALS: BP 91/59
[2019-10-29] MEDS: PIPERACILLIN/TAZOBACTAM 3.375 G in DEXT 5% WATER 100 ML IV SCH ×4 (05:25→23:21)
[2019-10-29 07:35] LABS: BASOPHILS % 0.2 % (0.0-2.0); HEMATOCRIT. 38.5 % (42.0-52.0); HEMOGLOBIN. 12.9 g/dL (14.0-18.0); LYMPHOCYTES % 8.3 % (20.0-50.0); MEAN CORPUSCULAR HEMOGLOBIN 29.7 pg (28.0-32.0); MEAN CORPUSCULAR VOLUME 88.4 fL (80.0-94.0); MEAN PLATELET VOLUME 10.3 fl (7.4-10.4); MONOCYTES % 8.8 % (2.0-8.0); NEUTROPHILS % 82.7 % (40.0-76.0); PLATELET 163 x1000/uL (130-400); RED BLOOD CELL COUNT 4.35 mill/uL (4.7-6.1); RED CELL DISTRIBUTION WIDTH 16.6 % (11.6-14.6)
[2019-10-29 07:38] LABS: PROTHROMBIN TIME 80.3 sec (9.6-11.0)
[2019-10-29 07:57] LABS: INR 7.8
[2019-10-29 08:00] VITALS: BP 101/53
[2019-10-29] MEDS: VANCOMYCIN 1 G PREMIX 200 ML IV SCH (08:13)
[2019-10-29] MEDS: POTASSIUM CHLORIDE 20MEQ TABLET SR PO SCH (08:13)
[2019-10-29] MEDS: DILTIAZEM HCL 120MG CAPSULE CD 24HR PO SCH (08:37)
[2019-10-29 12:00] VITALS: BP 91/63
[2019-10-29] MEDS: MIDODRINE HCL 5MG TABLET PO SCH ×2 (13:19→14:21)
[2019-10-29] MEDS: FUROSEMIDE 20MG/2ML VIAL IVP SCH (14:21)
[2019-10-29] MEDS ORDERED: MIDODRINE HCL 2.5MG TABLET ONE (19:30)
[2019-10-29] MEDS ORDERED: VANCOMYCIN 1,000 MG in DEXT 5% WATER 250 ML IV SCH (20:00)
[2019-10-30] VITALS: BP 109/65
[2019-10-30 04:00] VITALS: BP 95/62
[2019-10-30] MEDS ORDERED: VANCOMYCIN 1250MG in DEXTROSE 5% WATER 250ML IV SCH (06:00)
[2019-10-30] MEDS: PIPERACILLIN/TAZOBACTAM 3.375 G in DEXT 5% WATER 100 ML IV SCH ×4 (06:56→23:45)
[2019-10-30 08:00] VITALS: BP 90/55
[2019-10-30] MEDS: DILTIAZEM HCL 120MG CAPSULE CD 24HR PO SCH (09:00)
[2019-10-30] MEDS: MIDODRINE HCL 5MG TABLET PO SCH ×3 (09:35→18:09)
[2019-10-30] MEDS: FUROSEMIDE 20MG/2ML VIAL IVP SCH (09:36)
[2019-10-30] MEDS: BENZONATATE 100MG CAPSULE PO PRN ×2 (09:37→18:09)
[2019-10-30] MEDS: POTASSIUM CHLORIDE 20MEQ TABLET SR PO SCH (09:41)
[2019-10-30] MEDS ORDERED: POTASSIUM CHLORIDE 20MEQ TABLET SR PO ONE (09:43)
[2019-10-30 10:28] LABS: PROTHROMBIN TIME 69.1 sec (9.6-11.0)
[2019-10-30] MEDS ORDERED: SODIUM CHLORIDE 0.9% 250 ML IV ONE (10:30)
[2019-10-30 10:33] LABS: CHLORIDE 106 mEq/L (98-107)
[2019-10-30 10:36] LABS: INR 6.7
[2019-10-30] MEDS ORDERED: POTASSIUM CHLORIDE 20MEQ TABLET SR PO NR (11:30)
[2019-10-30 11:39] LABS: HEMATOCRIT 35.7 % (42.0-52.0); MEAN CORPUSCULAR HEMOGLOBIN 29.6 pg (28.0-32.0); MEAN CORPUSCULAR VOLUME 88.3 fL (80.0-94.0); PLATELET 153 x1000/uL (130-400); RED BLOOD CELL COUNT 4.04 mill/uL (4.7-6.1); RED CELL DISTRIBUTION WIDTH 16.5 % (11.6-14.6)
[2019-10-30 12:00] VITALS: BP 100/62
[2019-10-30] MEDS: DILTIAZEM HCL 30MG TABLET PO SCH ×2 (14:00→21:19)
[2019-10-30] MEDS ORDERED: MIDODRINE HCL 2.5MG TABLET ONE (14:04)
[2019-10-30 15:48] VITALS: BP 87/44
[2019-10-30] MEDS ORDERED: MIDODRINE HCL 5MG TABLET ONE (16:12)
[2019-10-30 20:00] VITALS: BP 95/52
[2019-10-31] VITALS: BP 96/43
[2019-10-31 04:00] VITALS: BP 93/65
[2019-10-31] MEDS: PIPERACILLIN/TAZOBACTAM 3.375 G in DEXT 5% WATER 100 ML IV SCH ×3 (05:19→17:20)
[2019-10-31] MEDS: DILTIAZEM HCL 30MG TABLET PO SCH ×3 (05:20→22:00)
[2019-10-31 06:47] LABS: BASOPHILS % 0.7 % (0.0-2.0); HEMATOCRIT. 36.1 % (42.0-52.0); HEMOGLOBIN. 11.9 g/dL (14.0-18.0); LYMPHOCYTES % 14.7 % (20.0-50.0); MEAN CORPUSCULAR HEMOGLOBIN 29.2 pg (28.0-32.0); MEAN CORPUSCULAR VOLUME 88.8 fL (80.0-94.0); MEAN PLATELET VOLUME 9.5 fl (7.4-10.4); MONOCYTES % 11.1 % (2.0-8.0); NEUTROPHILS % 70.5 % (40.0-76.0); PLATELET 198 x1000/uL (130-400); RED BLOOD CELL COUNT 4.06 mill/uL (4.7-6.1); RED CELL DISTRIBUTION WIDTH 16.8 % (11.6-14.6)
[2019-10-31 07:11] LABS: PROTHROMBIN TIME 52.8 sec (9.6-11.0)
[2019-10-31 07:40] LABS: INR 5.1
[2019-10-31 08:00] VITALS: BP 104/62
[2019-10-31] MEDS: MIDODRINE HCL 5MG TABLET PO SCH ×3 (08:50→17:19)
[2019-10-31] MEDS ORDERED: MIDODRINE HCL 5MG TABLET ONE ×3 (08:52→17:17)
[2019-10-31 12:00] VITALS: BP 107/63
[2019-10-31] MEDS ORDERED: DILTIAZEM HCL 30MG TABLET ONE (13:06)
[2019-10-31 16:00] VITALS: BP 96/60
[2019-10-31 20:00] VITALS: BP 98/59
[2019-11-01] VITALS: BP 97/63
[2019-11-01] MEDS: PIPERACILLIN/TAZOBACTAM 3.375 G in DEXT 5% WATER 100 ML IV SCH ×2 (00:28→05:34)
[2019-11-01 04:00] VITALS: BP 95/60
[2019-11-01] MEDS: DILTIAZEM HCL 30MG TABLET PO SCH (05:37)
[2019-11-01 05:40] LABS: PROTHROMBIN TIME 43.9 sec (9.6-11.0)
[2019-11-01 06:01] LABS: CHLORIDE 107 mEq/L (98-107)
[2019-11-01 06:07] LABS: BASOPHILS % 1.1 % (0.0-2.0); EOSINOPHILS % 6.3 % (0.0-5.0); HEMATOCRIT. 34.2 % (42.0-52.0); HEMOGLOBIN. 11.6 g/dL (14.0-18.0); LYMPHOCYTES % 9.4 % (20.0-50.0); MEAN CORPUSCULAR HEMOGLOBIN 29.6 pg (28.0-32.0); MEAN CORPUSCULAR VOLUME 87.5 fL (80.0-94.0); MEAN PLATELET VOLUME 9.3 fl (7.4-10.4); MONOCYTES % 10.7 % (2.0-8.0); NEUTROPHILS % 72.5 % (40.0-76.0); PLATELET 227 x1000/uL (130-400); RED CELL DISTRIBUTION WIDTH 16.6 % (11.6-14.6)
[2019-11-01 08:00] LABS: INR 4.2
[2019-11-01 08:35] VITALS: BP 105/64
[2019-11-01] MEDS: MIDODRINE HCL 5MG TABLET PO SCH (08:50)
[2019-11-01] MEDS ORDERED: POTASSIUM CHLORIDE 20MEQ TABLET SR PO NR ×2 (09:45→12:00)
[2019-11-01] MEDS ORDERED: FURO-152 MT (10:21)
[2019-11-01] MEDS ORDERED: DILT120C88 MT (10:21)
[2019-11-01 10:43] VITALS: BP 105/64
[2019-11-01 12:07] VITALS: BP 101/69
[2019-11-01] MEDS ORDERED: IPRATROPIUM/ALBUTEROL 0.5-3(2.5)MG/3ML NEB HHN SCH (16:00)
== END 2019-11-01 12:29 | disposition home or self-care (01) | DRG 720 ==
LOC: ER 13:03 → 7WST 18:48 → ENRESERV 21:08 → CANRESERV 21:08 → ENRESERV 10-27 16:19 → CANRESERV 10-27 16:19 → ENRESERV 10-27 17:25 → 7EST 10-29 15:57 → 6WST 10-31 23:21
PROVIDERS: ADMIT Internal Medicine; ATTEND Internal Medicine
DX: A41.9 Sepsis, unspecified organism (principal); J96.00 Acute respiratory failure, unspecified whether with hypoxia or hypercapnia; I50.23 Acute on chronic systolic (congestive) heart failure; D68.9 Coagulation defect, unspecified; J18.9 Pneumonia, unspecified organism; D69.6 Thrombocytopenia, unspecified; E44.1 Mild protein-calorie malnutrition; E87.8 Other disorders of electrolyte and fluid balance, not elsewhere classified; I42.9 Cardiomyopathy, unspecified; D72.810 Lymphocytopenia; I25.10 Atherosclerotic heart disease of native coronary artery without angina pectoris; I48.20 Chronic atrial fibrillation, unspecified; R74.0 Nonspecific elevation of levels of transaminase and lactic acid dehydrogenase [LDH]; I11.0 Hypertensive heart disease with heart failure; D64.9 Anemia, unspecified; R91.8 Other nonspecific abnormal finding of lung field; E87.6 Hypokalemia; I48.92 Unspecified atrial flutter; T45.515A Adverse effect of anticoagulants, initial encounter; Y92.89 Other specified places as the place of occurrence of the external cause; Z95.2 Presence of prosthetic heart valve; Z79.01 Long term (current) use of anticoagulants; Z68.22 Body mass index [BMI] 22.0-22.9, adult; I48.91 Unspecified atrial fibrillation
CPT/HCPCS: 36415; 71045; 80048; 80053; 80202; 81003; 82962; 83605; 83735; 83880; 84145; 84484; 85025; 85027; 87420; 87635; 87804; 93005; 93306; 99285; J1940; J1956; J2543; J2920; J3370; J7030; J7060; U0002

== ENCOUNTER → 2020-02-15 | Outpatient (CLI) | payer MEDICARE, MEDICAID ==
[~2020-02-15] MED LIST changes: +CARV3.1242 PO; -CEPH-569 MT; +DILT120C88 MT; -DILT30TA38 PO; +FURO-152 MT; -WARF6TAB22 MT
== END | disposition home or self-care (01) ==
LOC: LAB 08:10
PROVIDERS: ATTEND Specialist
DX: Z03.818 Encounter for observation for suspected exposure to other biological agents ruled out (principal)
CPT/HCPCS: C9803; U0003

== ENCOUNTER 2020-02-20 11:05 | Emergency (ER) | payer MEDICARE, MEDICAID ==
[~2020-02-20] VITALS: Ht 172.7 cm; Wt 67.0 kg
[2020-02-20] MEDS ORDERED: ONDANSETRON HCL 4MG/2ML INJ IV STA (11:37)
[2020-02-20] MEDS ORDERED: KETOROLAC 30MG/ML VIAL IV STA (11:37)
[2020-02-20] MEDS ORDERED: SODIUM CHLORIDE 0.9% 1,000 ML IV ONE (11:37)
[2020-02-20 12:12] LABS: CHLORIDE 105 mEq/L (98-107); HEMATOCRIT. 34.3 % (42.0-52.0); HEMOGLOBIN. 11.5 g/dL (14.0-18.0); MEAN CORPUSCULAR HEMOGLOBIN 29.2 pg (28.0-32.0); MEAN CORPUSCULAR VOLUME 87.4 fL (80.0-94.0); PLATELET 110 x1000/uL (130-400); RED BLOOD CELL COUNT 3.93 mill/uL (4.7-6.1); RED CELL DISTRIBUTION WIDTH 17.7 % (11.6-14.6)
[2020-02-20 12:18] LABS: INR 1.4; PROTHROMBIN TIME 14.6 sec (9.6-11.0)
[2020-02-20 12:40] LABS: PLATELET ESTIMATE DECREASED
[2020-02-20 12:41] LABS: CLARITY URINE CLEAR (CLEAR); COLOR URINE DARK YELLOW (YELLOW); KETONES URINE TRACE (NEGATIVE); LEUKOCYTE ESTERASE URINE 2+ (NEGATIVE); NITRITE URINE NEGATIVE (NEGATIVE); OCCULT BLOOD URINE 1+ (NEGATIVE); PROTEIN URINE 1+ (NEGATIVE)
[2020-02-20] MEDS ORDERED: AMOXICILLIN/POTASSIUM CLAVULANATE 875/125MG TAB PO ONE (15:00)
[2020-02-20 15:15] VITALS: BP 105/58
== END 2020-02-20 15:29 | disposition home or self-care (01) ==
LOC: ER 11:41
DX: N30.00 Acute cystitis without hematuria (principal); I48.91 Unspecified atrial fibrillation; I51.9 Heart disease, unspecified; N50.819 Testicular pain, unspecified; Z79.899 Other long term (current) drug therapy
CPT/HCPCS: 36415; 74176; 76870; 80053; 81003; 83690; 85025; 85610; 87077; 87086; 87186; 93976; 96374; 96375; 99285; J1885; J2405; J7030

== ENCOUNTER 2022-03-06 02:03 | Inpatient (IN) | payer OTHER, MEDICAID ==
[~2022-03-06] VITALS: Ht 172.7 cm; Wt 58.5 kg
[2022-03-06 02:59] LABS: BASOPHILS % 0.6 % (0.0-2.0); EOSINOPHILS % 0.2 % (0.0-5.0); HEMATOCRIT. 32.1 % (42.0-52.0); HEMOGLOBIN. 10.3 g/dL (14.0-18.0); LYMPHOCYTES % 8.9 % (20.0-50.0); MEAN CORPUSCULAR HEMOGLOBIN 28.1 pg (28.0-32.0); MEAN CORPUSCULAR VOLUME 87.8 fL (80.0-94.0); MEAN PLATELET VOLUME 9.9 fl (7.4-10.4); MONOCYTES % 6.6 % (2.0-8.0); NEUTROPHILS % 83.7 % (40.0-76.0); PLATELET 128 x1000/uL (130-400); RED BLOOD CELL COUNT 3.66 mill/uL (4.7-6.1); RED CELL DISTRIBUTION WIDTH 17.9 % (11.6-14.6)
[2022-03-06 03:05] LABS: CHLORIDE 109 mEq/L (98-107)
[2022-03-06] MEDS ORDERED: FUROSEMIDE 40MG/4ML VIAL IVP NR (03:45)
[2022-03-06 04:13] LABS: INR 1.6; PROTHROMBIN TIME 16.1 sec (9.6-11.0)
[2022-03-06 09:44] VITALS: BP 135/70
[2022-03-06 09:50] VITALS: BP 135/70
[2022-03-06] MEDS ORDERED: WARF6TAB48 MT (10:14)
[2022-03-06 12:00] VITALS: BP 131/62
[2022-03-06] MEDS ORDERED: ONDANSETRON HCL 4MG/2ML INJ IV PRN (12:45)
[2022-03-06] MEDS ORDERED: CLONIDINE 0.1MG TABLET PO PRN (12:45)
[2022-03-06] MEDS: ASPIRIN 81MG TABLET PO SCH (13:14)
[2022-03-06] MEDS: PANTOPRAZOLE SODIUM 40 MG/VIAL IV SCH (13:14)
[2022-03-06] MEDS ORDERED: ASPIRIN 81MG EC TABLET PO NR (14:45)
[2022-03-06] MEDS ORDERED: ENOXAPARIN 60MG/0.6ML SYR SUBCUT NR (15:30)
[2022-03-06 16:00] VITALS: BP 107/61
[2022-03-06 16:44] LABS: CREATINE KINASE 65 IU/L (39-308); CREATINE KINASE MB FRACTION < 1.0 ng/mL (0.5-3.6)
[2022-03-06] MEDS ORDERED: FUROSEMIDE 40MG/4ML VIAL IVP SCH (17:15)
[2022-03-06] MEDS ORDERED: WARFARIN SODIUM 3MG TABLET PO SCH (18:00)
[2022-03-06 19:20] LABS: CLARITY URINE CLEAR (CLEAR); COLOR URINE YELLOW (YELLOW); KETONES URINE NEGATIVE (NEGATIVE); LEUKOCYTE ESTERASE URINE NEGATIVE (NEGATIVE); NITRITE URINE NEGATIVE (NEGATIVE); OCCULT BLOOD URINE TRACE (NEGATIVE); PROTEIN URINE TRACE (NEGATIVE); SPECIFIC GRAVITY URINE 1.014 (1.005-1.030)
[2022-03-06 19:24] LABS: *AMPHETAMINES SCREEN URINE NEGATIVE (NEGATIVE); *BARBITURATES SCREEN URINE NEGATIVE (NEGATIVE); *BENZODIAZEPINES SCREEN URINE NEGATIVE (NEGATIVE); *COCAINE SCREEN URINE NEGATIVE (NEGATIVE); CANNABINOID URINE SCREEN NEGATIVE (NEGATIVE); METHADONE URINE SCREEN NEGATIVE (NEGATIVE); OPIATES URINE SCREEN NEGATIVE (NEGATIVE); PHENCYCLIDINE URINE SCREEN NEGATIVE (NEGATIVE)
[2022-03-06 20:00] VITALS: BP 109/65
[2022-03-07] VITALS: BP 118/51
[2022-03-07 01:34] LABS: CREATINE KINASE 55 IU/L (39-308); CREATINE KINASE MB FRACTION < 1.0 ng/mL (0.5-3.6)
[2022-03-07 04:00] VITALS: BP 103/61
[2022-03-07 07:57] LABS: EOSINOPHILS % 3.1 % (0.0-5.0); HEMATOCRIT. 31.3 % (42.0-52.0); LYMPHOCYTES % 13.1 % (20.0-50.0); MEAN CORPUSCULAR HEMOGLOBIN 27.7 pg (28.0-32.0); MEAN CORPUSCULAR VOLUME 86.6 fL (80.0-94.0); MEAN PLATELET VOLUME 10.2 fl (7.4-10.4); MONOCYTES % 8.2 % (2.0-8.0); NEUTROPHILS % 74.6 % (40.0-76.0); PLATELET 140 x1000/uL (130-400); RED BLOOD CELL COUNT 3.61 mill/uL (4.7-6.1); RED CELL DISTRIBUTION WIDTH 17.4 % (11.6-14.6)
[2022-03-07 08:00] VITALS: BP 109/54
[2022-03-07 08:02] LABS: INR 1.6; PROTHROMBIN TIME 16.6 sec (9.6-11.0)
[2022-03-07 08:11] LABS: CHLORIDE 106 mEq/L (98-107)
[2022-03-07] MEDS: PANTOPRAZOLE SODIUM 40 MG/VIAL IV SCH (08:20)
[2022-03-07 08:21] LABS: HDL CHOLESTEROL 48 mg/dL (40-59); LDL CHOLESTEROL 99 mg/dL (5-100)
[2022-03-07] MEDS: FUROSEMIDE 40MG/4ML VIAL IVP SCH (08:21)
[2022-03-07] MEDS: ASPIRIN 81MG TABLET PO SCH (08:21)
[2022-03-07] MEDS ORDERED: ASPIRIN/SOD BICARB/CITRIC ACID 324MG TAB EFF ONE (08:29)
[2022-03-07] MEDS ORDERED: MIDAZOLAM HCL 2 MG/2 ML VIAL ONE (08:29)
[2022-03-07] MEDS ORDERED: IODIXANOL 320MG/ML 100 ML BOTTLE IV ONE (08:30)
[2022-03-07] MEDS ORDERED: HEPARIN 1000 UNITS/ML 10ML ONE (08:30)
[2022-03-07] MEDS ORDERED: LIDOCAINE HCL/PF 2% 20MG/ML 5 ML/VIAL ONE (08:30)
[2022-03-07] MEDS ORDERED: FENTANYL CITRATE/PF 50MCG/ML 2ML VIAL ONE (08:30)
[2022-03-07 12:00] VITALS: BP 132/75
[2022-03-07] MEDS: ENOXAPARIN 60MG/0.6ML SYR SUBCUT SCH (13:20)
[2022-03-07 16:00] VITALS: BP 105/70
[2022-03-07] MEDS ORDERED: WARFARIN SODIUM 7.5MG TABLET PO NR (18:00)
[2022-03-07 20:00] VITALS: BP 110/65
[2022-03-08] VITALS: BP 109/63
[2022-03-08] MEDS: ACETAMINOPHEN 325MG TABLET PO PRN ×2 (02:20→17:14)
[2022-03-08 04:00] VITALS: BP 104/68
[2022-03-08 05:34] LABS: INR 1.7; PROTHROMBIN TIME 17.7 sec (9.6-11.0)
[2022-03-08 06:26] LABS: T4 FREE 1.04 ng/dL (0.76-1.46)
[2022-03-08 06:38] LABS: VITAMIN B12 SERUM 393 pg/mL (211-911)
[2022-03-08 08:00] VITALS: BP 103/57
[2022-03-08] MEDS: FUROSEMIDE 40MG/4ML VIAL IVP SCH (09:44)
[2022-03-08] MEDS: ASPIRIN 81MG TABLET PO SCH (09:44)
[2022-03-08] MEDS: FAMOTIDINE 20MG TABLET PO SCH ×2 (09:44→21:08)
[2022-03-08] MEDS: ENOXAPARIN 60MG/0.6ML SYR SUBCUT SCH ×2 (09:44→18:27)
[2022-03-08 09:59] LABS: BASOPHILS % 0.6 % (0.0-2.0); EOSINOPHILS % 2.6 % (0.0-5.0); HEMATOCRIT. 31.4 % (42.0-52.0); HEMOGLOBIN. 10.3 g/dL (14.0-18.0); LYMPHOCYTES % 13.2 % (20.0-50.0); MEAN CORPUSCULAR HEMOGLOBIN 27.9 pg (28.0-32.0); MEAN CORPUSCULAR VOLUME 85.1 fL (80.0-94.0); MEAN PLATELET VOLUME 10.9 fl (7.4-10.4); MONOCYTES % 10.1 % (2.0-8.0); NEUTROPHILS % 73.5 % (40.0-76.0); PLATELET 151 x1000/uL (130-400); RED BLOOD CELL COUNT 3.69 mill/uL (4.7-6.1); RED CELL DISTRIBUTION WIDTH 17.8 % (11.6-14.6)
[2022-03-08 10:04] LABS: CHLORIDE 106 mEq/L (98-107)
[2022-03-08 12:00] VITALS: BP 123/68
[2022-03-08 16:00] VITALS: BP 128/71
[2022-03-08] MEDS ORDERED: HYDRALAZINE 20MG/ML VIAL IV PRN (16:00)
[2022-03-08] MEDS ORDERED: PANT40TA51 MT (16:58)
[2022-03-08] MEDS ORDERED: BUTA-288 MT (16:58)
[2022-03-08] MEDS ORDERED: HYDROCODONE/ACETAMINOPHEN 5/325MG TABLET PO PRN (17:00)
[2022-03-08] MEDS ORDERED: NALOXONE HCL 0.4MG/ML VIAL IV PRN (17:15)
[2022-03-08] MEDS ORDERED: WARFARIN SODIUM 4MG TABLET PO NR (18:00)
[2022-03-08] MEDS: AMPICILLIN SOD/SULBACTAM NA 3 G in SODIUM CHLORIDE 0.9% 100 ML IV SCH (18:26)
[2022-03-08 20:00] VITALS: BP 131/65
[2022-03-09] VITALS: BP 115/70
[2022-03-09] MEDS: AMPICILLIN SOD/SULBACTAM NA 3 G in SODIUM CHLORIDE 0.9% 100 ML IV SCH ×3 (02:30→11:09)
[2022-03-09 04:00] VITALS: BP 110/72
[2022-03-09 06:03] LABS: EOSINOPHILS % 3.6 % (0.0-5.0); HEMATOCRIT. 31.4 % (42.0-52.0); HEMOGLOBIN. 10.4 g/dL (14.0-18.0); LYMPHOCYTES % 21.8 % (20.0-50.0); MEAN CORPUSCULAR HEMOGLOBIN 28.2 pg (28.0-32.0); MEAN CORPUSCULAR VOLUME 84.8 fL (80.0-94.0); MEAN PLATELET VOLUME 9.8 fl (7.4-10.4); MONOCYTES % 10.2 % (2.0-8.0); NEUTROPHILS % 63.4 % (40.0-76.0); PLATELET 152 x1000/uL (130-400); RED CELL DISTRIBUTION WIDTH 17.7 % (11.6-14.6)
[2022-03-09 06:13] LABS: CHLORIDE 104 mEq/L (98-107)
[2022-03-09 06:14] LABS: INR 2.1; PROTHROMBIN TIME 21.5 sec (9.6-11.0)
[2022-03-09 08:00] VITALS: BP 121/60
[2022-03-09] MEDS: ENOXAPARIN 60MG/0.6ML SYR SUBCUT SCH (08:33)
[2022-03-09] MEDS: ASPIRIN 81MG TABLET PO SCH (08:34)
[2022-03-09] MEDS: FAMOTIDINE 20MG TABLET PO SCH (08:34)
[2022-03-09] MEDS: FUROSEMIDE 40MG/4ML VIAL IVP SCH (08:34)
[2022-03-09] MEDS ORDERED: LOSA25TA3 MT (10:41)
[2022-03-09] MEDS ORDERED: ASPI-1497 MT (10:41)
[2022-03-09] MEDS ORDERED: AMOX1TAB16 MT (10:41)
[2022-03-09 12:00] VITALS: BP 116/66
[2022-03-09 15:26] VITALS: BP 104/65
[2022-03-09 15:31] VITALS: BP 104/65
[2022-03-09] MEDS ORDERED: WARFARIN SODIUM 4MG TABLET PO NR (18:00)
== END 2022-03-09 16:05 | disposition home or self-care (01) | DRG 292 ==
LOC: ER 02:03 → 8WST 04:58 → ENRESERV 08:59
PROVIDERS: ADMIT Internal Medicine; ATTEND Internal Medicine
DX: I11.0 Hypertensive heart disease with heart failure (principal); I48.20 Chronic atrial fibrillation, unspecified; R07.89 Other chest pain; I42.9 Cardiomyopathy, unspecified; D69.6 Thrombocytopenia, unspecified; I27.20 Pulmonary hypertension, unspecified; Z20.822 Contact with and (suspected) exposure to COVID-19; E78.5 Hyperlipidemia, unspecified; I25.10 Atherosclerotic heart disease of native coronary artery without angina pectoris; R79.1 Abnormal coagulation profile; Z95.5 Presence of coronary angioplasty implant and graft; Z95.2 Presence of prosthetic heart valve; Z79.899 Other long term (current) drug therapy; Z79.01 Long term (current) use of anticoagulants; I25.2 Old myocardial infarction; I50.22 Chronic systolic (congestive) heart failure; I34.0 Nonrheumatic mitral (valve) insufficiency
CPT/HCPCS: 36415; 71045; 80048; 80053; 80061; 80305; 81003; 82550; 82553; 82607; 83540; 83550; 83880; 84145; 84439; 84443; 84481; 84484; 85025; 85044; 87426; 93005; 93306; 99285; C9113; J0295; J1644; J1650; J1940; J2250; J3010; J3490; J7050; Q9967

== ENCOUNTER 2022-08-02 22:53 | Inpatient (IN) | payer OTHER, MEDICAID ==
[~2022-08-02] VITALS: Ht 172.7 cm; Wt 58.3 kg
[~2022-08-02 22:53] MED LIST changes: +AMOX1TAB16 MT; +ASPI-1497 MT; +BUTA-288 MT; -COR3 PO; -DILT120C88 MT; +LOSA25TA3 MT; +PANT40TA51 MT; +WARF6TAB48 MT
[2022-08-03 01:17] LABS: BASOPHILS % 0.7 % (0.0-2.0); EOSINOPHILS % 0.5 % (0.0-5.0); HEMATOCRIT. 32.3 % (42.0-52.0); HEMOGLOBIN. 10.5 g/dL (14.0-18.0); LYMPHOCYTES % 11.3 % (20.0-50.0); MEAN CORPUSCULAR HEMOGLOBIN 28.9 pg (28.0-32.0); MEAN CORPUSCULAR VOLUME 88.6 fL (80.0-94.0); MEAN PLATELET VOLUME 11.2 fl (7.4-10.4); NEUTROPHILS % 81.5 % (40.0-76.0); PLATELET 132 x1000/uL (130-400); RED BLOOD CELL COUNT 3.65 mill/uL (4.7-6.1); RED CELL DISTRIBUTION WIDTH 18.2 % (11.6-14.6)
[2022-08-03 01:24] LABS: CHLORIDE 109 mEq/L (98-107)
[2022-08-03] MEDS ORDERED: ASPIRIN 81MG TABLET PO ONE (04:00)
[2022-08-03] MEDS ORDERED: ONDANSETRON HCL 4MG/2ML INJ IV PRN (11:45)
[2022-08-03] MEDS ORDERED: ACETAMINOPHEN 325MG TABLET PO PRN (11:45)
[2022-08-03] MEDS: FUROSEMIDE 40MG/4ML VIAL IVP SCH (12:00)
[2022-08-03 12:38] LABS: INR 2.5; PROTHROMBIN TIME 24.8 sec (9.6-11.0)
[2022-08-03] MEDS ORDERED: WARFARIN SODIUM 5MG TABLET PO SCH (18:00)
[2022-08-04] VITALS: BP 120/63
[2022-08-04 04:00] VITALS: BP 98/51
[2022-08-04 07:39] LABS: BASOPHILS % 1.2 % (0.0-2.0); EOSINOPHILS % 3.1 % (0.0-5.0); HEMATOCRIT. 32.5 % (42.0-52.0); HEMOGLOBIN. 10.6 g/dL (14.0-18.0); LYMPHOCYTES % 18.8 % (20.0-50.0); MEAN CORPUSCULAR HEMOGLOBIN 28.8 pg (28.0-32.0); MONOCYTES % 8.2 % (2.0-8.0); NEUTROPHILS % 68.7 % (40.0-76.0); RED BLOOD CELL COUNT 3.69 mill/uL (4.7-6.1); RED CELL DISTRIBUTION WIDTH 17.8 % (11.6-14.6)
[2022-08-04 07:48] LABS: INR 2.6; PROTHROMBIN TIME 26.2 sec (9.6-11.0)
[2022-08-04 08:00] VITALS: BP 117/53
[2022-08-04 08:19] LABS: CHLORIDE 106 mEq/L (98-107)
[2022-08-04] MEDS: FUROSEMIDE 40MG/4ML VIAL IVP SCH (08:57)
[2022-08-04 11:43] LABS: MEAN PLATELET VOLUME 11.1 fl (7.4-10.4)
[2022-08-04 11:44] LABS: PLATELET 123 x1000/uL (130-400)
[2022-08-04 12:00] VITALS: BP 115/56
[2022-08-04 12:33] VITALS: BP 115/56
[2022-08-04] MEDS ORDERED: WARFARIN SODIUM 5MG TABLET PO SCH (18:00)
== END 2022-08-04 13:05 | disposition home or self-care (01) | DRG 291 ==
LOC: ER 22:53 → 8WST 08-03 08:36 → EDBEDREQTM 08-03 08:43 → EDBEDREQ 08-03 08:43 → ENRESERV 08-03 22:19
PROVIDERS: ADMIT Internal Medicine; ATTEND Internal Medicine
DX: I11.0 Hypertensive heart disease with heart failure (principal); I50.23 Acute on chronic systolic (congestive) heart failure; D68.9 Coagulation defect, unspecified; I25.10 Atherosclerotic heart disease of native coronary artery without angina pectoris; Z20.822 Contact with and (suspected) exposure to COVID-19; I42.9 Cardiomyopathy, unspecified; I48.91 Unspecified atrial fibrillation; E78.5 Hyperlipidemia, unspecified; Z91.199 Patient's noncompliance with other medical treatment and regimen due to unspecified reason; Z79.01 Long term (current) use of anticoagulants; Z95.2 Presence of prosthetic heart valve; I25.2 Old myocardial infarction; Z95.5 Presence of coronary angioplasty implant and graft; J06.9 Acute upper respiratory infection, unspecified; R07.9 Chest pain, unspecified
CPT/HCPCS: 36415; 71045; 80048; 80053; 83880; 84484; 85025; 87426; 93005; 93306; 96374; 99285; C9803; J1940

== ENCOUNTER 2023-04-24 16:44 | Emergency (ER) | payer OTHER, MEDICAID ==
[~2023-04-24] VITALS: Ht 172.7 cm; Wt 59.0 kg
[2023-04-24 16:46] VITALS: O2SAT 100
[2023-04-24 17:28] LABS: BASOPHILS % 1.2 % (0.0-2.0); DIFFERENTIAL COMMENT 0; EOSINOPHILS % 2.9 % (0.0-5.0); HEMATOCRIT. 32.3 % (42.0-52.0); HEMOGLOBIN. 10.3 g/dL (14.0-18.0); LYMPHOCYTES % 14.4 % (20.0-50.0); MEAN CORPUSCULAR HEMOGLOBIN 29.4 pg (28.0-32.0); MEAN PLATELET VOLUME 9.9 fl (7.4-10.4); MONOCYTES % 7.9 % (2.0-8.0); NEUTROPHILS % 73.6 % (40.0-76.0); PLATELET 114 x1000/uL (130-400); RED BLOOD CELL COUNT 3.51 mill/uL (4.7-6.1); RED CELL DISTRIBUTION WIDTH 17.4 % (11.6-14.6); WHITE BLOOD COUNT 4.2 x1000/uL (4.5-11.0)
[2023-04-24 17:43] LABS: CHLORIDE 112 mEq/L (98-107); INDEX HEMOLYSI 1 (1-3); INDEX ICTERIC 1 (1-4); INDEX LIPEMIC 1 (1-3); SODIUM 140 mEq/L (136-145)
[2023-04-24 17:50] LABS: ALANINE AMINOTRANSFERASE 20 IU/L (13-61); ALBUMIN 3.5 g/dL (3.4-5.0); ASPARTATE AMINOTRANSFERASE 36 IU/L (15-37); BILIRUBIN TOTAL 1.9 mg/dL (0.1-1.0); CALCIUM 8.9 mg/dL (8.5-10.1); CARBON DIOXIDE 25 mEq/L (21-32); CREATININE 1.4 mg/dL (0.6-1.3); GLUCOSE 109 mg/dL (70-105); PROTEIN TOTAL 8.4 g/dL (6.0-8.3); UREA NITROGEN BLOOD 15 mg/dL (7-21)
[2023-04-24 20:06] LABS: NT PRO B-TYPE NATRIURETIC PEP 9031 pg/mL (5-125); TROPONIN I HIGH SENSITIVITY 34 ng/L (<78)
[2023-04-24] MEDS ORDERED: ASPIRIN 81MG TABLET PO ONE (21:15)
[2023-04-24] MEDS ORDERED: FUROSEMIDE 40MG/4ML VIAL IV ONE (21:15)
[2023-04-24] MEDS ORDERED: FUROSEMIDE 40MG/4ML VIAL IV NR (23:45)
[2023-04-24] MEDS ORDERED: ASPIRIN 81MG TABLET PO NR (23:45)
[2023-04-25 01:18] LABS: TROPONIN I HIGH SENSITIVITY 32 ng/L (<78)
[2023-04-25 02:54] VITALS: BP 102/56; PULSE 90; RESP 18; TEMP 98.4
== END 2023-04-25 03:10 | disposition short-term general hospital (02) ==
LOC: ER 16:44
DX: R07.89 Other chest pain (principal); I20.0 Unstable angina; I50.9 Heart failure, unspecified; I48.91 Unspecified atrial fibrillation; I25.2 Old myocardial infarction; Z86.73 Personal history of transient ischemic attack (TIA), and cerebral infarction without residual deficits; Z20.822 Contact with and (suspected) exposure to COVID-19
CPT/HCPCS: 99285; 96374; 71045; 87426; 80053; 83880; 85025; 84484 ×2; 36415 ×2; 93005; C9803; J1940

== ENCOUNTER 2024-07-20 18:39 | Emergency (ER) | payer BC, MEDICAID ==
[~2024-07-20] VITALS: Ht 175.3 cm; Wt 60.0 kg
[~2024-07-20 18:39] MED LIST changes: +LOSA-412 MT; -LOSA25TA3 MT
[2024-07-20 18:42] VITALS: BP 105/50; PULSE 102; RESP 16; TEMP 98.9; O2SAT 98
[2024-07-20 19:30] LABS: BASOPHILS % 0.7 % (0.0-2.0); DIFFERENTIAL COMMENT 0; EOSINOPHILS % 3.7 % (0.0-5.0); HEMATOCRIT. 30.3 % (42.0-52.0); HEMOGLOBIN. 9.5 g/dL (14.0-18.0); LYMPHOCYTES % 12.4 % (20.0-50.0); MEAN CORPUSCULAR HEMOGLOBIN 27.7 pg (28.0-32.0); MEAN CORPUSCULAR HGB CONC 31.4 g/dL (31.0-37.0); MEAN CORPUSCULAR VOLUME 88.1 fL (80.0-94.0); MEAN PLATELET VOLUME 10.7 fl (7.4-10.4); MONOCYTES % 7.8 % (2.0-8.0); NEUTROPHILS % 75.4 % (40.0-76.0); PLATELET 102 x1000/uL (130-400); RED BLOOD CELL COUNT 3.44 mill/uL (4.7-6.1); WHITE BLOOD COUNT 3.9 x1000/uL (4.5-11.0)
[2024-07-20 19:33] LABS: CHLORIDE 111 mEq/L (98-107); POTASSIUM 4.1 mEq/L (3.5-5.1); SODIUM 144 mEq/L (136-145)
[2024-07-20 19:34] LABS: CARBON DIOXIDE 24 mEq/L (21-32)
[2024-07-20 19:39] LABS: CREATININE 1.5 mg/dL (0.6-1.3); GLUCOSE 93 mg/dL (70-105); UREA NITROGEN BLOOD 13 mg/dL (9-23)
[2024-07-20 19:41] LABS: TROPONIN I HIGH SENSITIVITY 34 ng/L (3.0-53)
== END 2024-07-20 23:21 | disposition left against medical advice (07) ==
LOC: ER 18:39
DX: R07.89 Other chest pain (principal); Z53.21 Procedure and treatment not carried out due to patient leaving prior to being seen by health care provider
CPT/HCPCS: 36415; 71045; 80048; 84484; 85025; 93005